=== PATIENT | male | born 1950 | race Caucasian/White ===

== ENCOUNTER 2018-04-02 09:27 | Inpatient (IN) | payer MEDICARE, OTHER ==
[2018-04-02] MEDS: ASPIRIN 325 MG TAB PO (10:28)
[2018-04-02 10:40] LABS: ADD MAN DIFF? NO
[2018-04-02 10:43] LABS: WHITE BLOOD COUNT 12.6 10^3/ul (4.8-10.8)
[2018-04-02 10:43] LABS: BASOPHIL # 0.1 10^3/ul (0.0-0.1); BASOPHILS % 0.6 % (0.0-2.0); EOSINOPHILS # 0.2 10^3/ul (0.0-0.5); EOSINOPHILS % 1.3 % (0.0-7.0); HEMATOCRIT 41.4 % (42.0-52.0); HEMOGLOBIN 13.3 g/dl (14.0-18.0); LYMPHOCYTES # 3.7 10^3/ul (0.8-2.9); LYMPHOCYTES % 29.2 % (15.0-51.0); MEAN CORPUSCULAR HEMOGLOBIN 28.7 pg (29.0-33.0); MEAN CORPUSCULAR HGB CONC 32.1 g/dl (32.0-37.0); MEAN CORPUSCULAR VOLUME 89.4 fl (82.0-101.0); MEAN PLATELET VOLUME 10.2 fl (7.4-10.4); MONOCYTE # 0.7 10^3/ul (0.3-0.9); MONOCYTES % 5.2 % (0.0-11.0); NEUTROPHIL # 7.9 10^3/ul (1.6-7.5); NEUTROPHILS % 63.1 % (39.0-77.0); PLATELET COUNT 283 10^3/UL (140-415); RED BLOOD COUNT 4.63 10^6/ul (4.70-6.10); RED CELL DISTRIBUTION WIDTH 13.2 % (11.5-14.5)
[2018-04-02] MEDS: ENOXAPARIN 80 MG/0.8 ML SYG SC (10:56)
[2018-04-02] MEDS: NITROGLYCERIN 2% 1 GM OINT PKT TD (10:56)
[2018-04-02 11:01] LABS: INR 0.98; PROTIME 13.1 Sec (11.9-14.9)
[2018-04-02 11:02] LABS: PARTIAL THROMBOPLASTIN TIME 36.3 Sec (25.0-35.0)
[2018-04-02 11:03] LABS: ALANINE AMINOTRANSFERASE 34 IU/L (13-69); ALBUMIN/GLOBULIN RATIO 1.17; ALKALINE PHOSPHATASE 79 IU/L (42-121); ANION GAP 12 (8-16); ASPARTATE AMINO TRANSFERASE 21 IU/L (15-46); BILIRUBIN,INDIRECT 0.5 mg/dl (0-1.1); BILIRUBIN,TOTAL 0.5 mg/dl (0.2-1.3); BLOOD UREA NITROGEN 20 mg/dl (7-20); CALCIUM 8.8 mg/dl (8.4-10.2); CARBON DIOXIDE 27 mmol/L (21-31); CHLORIDE 107 mmol/L (97-110); CREATININE 0.93 mg/dl (0.61-1.24); GLUCOSE 104 mg/dl (70-220); POTASSIUM 4.5 mmol/L (3.5-5.1); SODIUM 141 mmol/L (135-144); TOTAL PROTEIN 7.4 g/dl (6.1-8.1)
[2018-04-02 11:14] LABS: TROPONIN-I 0.061 ng/ml (0.000-0.120)
[2018-04-02] MEDS ORDERED: ACETAMINOPHEN 325 MG TAB PO ×2 (12:30→14:30)
[2018-04-02] MEDS ORDERED: ONDANSETRON 4 MG INJ IV ×2 (12:30→14:30)
[2018-04-02] MEDS ORDERED: NACL 0.9% 3 ML SYG IV (14:30)
[2018-04-02] MEDS ORDERED: MAGNESIUM HYDROXIDE 30ML CUP PO (14:30)
[2018-04-02] MEDS ORDERED: DOCUSATE SODIUM 100 MG CAP PO (14:30)
[2018-04-02 14:55] LABS: CREATINE KINASE 48 IU/L (23-200)
[2018-04-02 15:08] LABS: CK INDEX 1.3; CK-MB 0.63 ng/ml (0.0-2.4); TROPONIN-I 0.074 ng/ml (0.000-0.120)
[2018-04-02 20:54] LABS: CREATINE KINASE 48 IU/L (23-200)
[2018-04-02 21:07] LABS: CK INDEX 1.2; CK-MB 0.57 ng/ml (0.0-2.4); TROPONIN-I 0.055 ng/ml (0.000-0.120)
[2018-04-02] MEDS: ATORVASTATIN 80 MG TAB PO (22:04)
[2018-04-03] MEDS: NITROGLYCERIN (SL) 0.4 MG TAB SL (06:57)
[2018-04-03] MEDS: PANTOPRAZOLE (EC) 40 MG TAB PO (06:57)
[2018-04-03] MEDS: NIFEdipine (XL) 30 MG TAB PO (08:30)
[2018-04-03] MEDS: ISOSORBIDE MONONITRATE(SR)30 MG TAB PO (08:30)
[2018-04-03] MEDS: ASPIRIN 81 MG TAB PO (08:30)
[2018-04-03 09:14] LABS: ADD MAN DIFF? NO
[2018-04-03 09:43] LABS: WHITE BLOOD COUNT 13.8 10^3/ul (4.8-10.8)
[2018-04-03 09:43] LABS: BASOPHIL # 0.1 10^3/ul (0.0-0.1); BASOPHILS % 0.8 % (0.0-2.0); EOSINOPHILS # 0.2 10^3/ul (0.0-0.5); EOSINOPHILS % 1.2 % (0.0-7.0); HEMATOCRIT 46.4 % (42.0-52.0); HEMOGLOBIN 14.2 g/dl (14.0-18.0); LYMPHOCYTES # 3.9 10^3/ul (0.8-2.9); LYMPHOCYTES % 28.1 % (15.0-51.0); MEAN CORPUSCULAR HEMOGLOBIN 27.7 pg (29.0-33.0); MEAN CORPUSCULAR HGB CONC 30.6 g/dl (32.0-37.0); MEAN CORPUSCULAR VOLUME 90.6 fl (82.0-101.0); MEAN PLATELET VOLUME 10.6 fl (7.4-10.4); MONOCYTE # 0.9 10^3/ul (0.3-0.9); MONOCYTES % 6.7 % (0.0-11.0); NEUTROPHIL # 8.6 10^3/ul (1.6-7.5); NEUTROPHILS % 62.8 % (39.0-77.0); PLATELET COUNT 302 10^3/UL (140-415); RED BLOOD COUNT 5.12 10^6/ul (4.70-6.10); RED CELL DISTRIBUTION WIDTH 13.3 % (11.5-14.5)
[2018-04-03 10:01] LABS: ALBUMIN 4.1 g/dl (3.3-4.9); ANION GAP 13 (8-16); BLOOD UREA NITROGEN 21 mg/dl (7-20); CALCIUM 8.9 mg/dl (8.4-10.2); CARBON DIOXIDE 28 mmol/L (21-31); CHLORIDE 107 mmol/L (97-110); CREATININE 1.04 mg/dl (0.61-1.24); GLUCOSE 96 mg/dl (70-220); MAGNESIUM 2.2 mg/dl (1.7-2.5); PHOSPHORUS 4.2 mg/dl (2.5-4.9); POTASSIUM 4.4 mmol/L (3.5-5.1); SODIUM 144 mmol/L (135-144)
[2018-04-03] MEDS: ATORVASTATIN 80 MG TAB PO (20:43)
[2018-04-04] MEDS: PANTOPRAZOLE (EC) 40 MG TAB PO (06:03)
[2018-04-04 07:15] LABS: ADD MAN DIFF? NO
[2018-04-04 07:19] LABS: WHITE BLOOD COUNT 13.2 10^3/ul (4.8-10.8)
[2018-04-04 07:19] LABS: BASOPHIL # 0.1 10^3/ul (0.0-0.1); BASOPHILS % 0.6 % (0.0-2.0); EOSINOPHILS # 0.2 10^3/ul (0.0-0.5); EOSINOPHILS % 1.6 % (0.0-7.0); HEMATOCRIT 43.2 % (42.0-52.0); HEMOGLOBIN 13.7 g/dl (14.0-18.0); LYMPHOCYTES # 4.5 10^3/ul (0.8-2.9); LYMPHOCYTES % 33.9 % (15.0-51.0); MEAN CORPUSCULAR HEMOGLOBIN 28.3 pg (29.0-33.0); MEAN CORPUSCULAR HGB CONC 31.7 g/dl (32.0-37.0); MEAN CORPUSCULAR VOLUME 89.3 fl (82.0-101.0); MEAN PLATELET VOLUME 10.2 fl (7.4-10.4); MONOCYTE # 0.7 10^3/ul (0.3-0.9); MONOCYTES % 5.3 % (0.0-11.0); NEUTROPHIL # 7.7 10^3/ul (1.6-7.5); NEUTROPHILS % 58.1 % (39.0-77.0); PLATELET COUNT 280 10^3/UL (140-415); RED BLOOD COUNT 4.84 10^6/ul (4.70-6.10); RED CELL DISTRIBUTION WIDTH 13.2 % (11.5-14.5)
[2018-04-04 07:47] LABS: ALBUMIN 3.9 g/dl (3.3-4.9); ANION GAP 14 (8-16); BLOOD UREA NITROGEN 23 mg/dl (7-20); CALCIUM 8.9 mg/dl (8.4-10.2); CARBON DIOXIDE 27 mmol/L (21-31); CHLORIDE 106 mmol/L (97-110); CREATININE 1.17 mg/dl (0.61-1.24); GLUCOSE 101 mg/dl (70-220); MAGNESIUM 2.1 mg/dl (1.7-2.5); PHOSPHORUS 4.1 mg/dl (2.5-4.9); POTASSIUM 3.9 mmol/L (3.5-5.1); SODIUM 143 mmol/L (135-144)
[2018-04-04] MEDS: ASPIRIN (EC) 325 MG TAB PO (09:04)
[2018-04-04] MEDS: NIFEdipine (XL) 30 MG TAB PO (09:07)
[2018-04-04] MEDS: ISOSORBIDE MONONITRATE(SR)30 MG TAB PO (09:08)
== END 2018-04-04 13:20 | disposition home or self-care (01) | DRG 309 ==
LOC: E/R 09:27 → TEL 12:08
DX: I48.91 Unspecified atrial fibrillation (principal); I20.1 Angina pectoris with documented spasm; I50.30 Unspecified diastolic (congestive) heart failure; I11.0 Hypertensive heart disease with heart failure; E78.5 Hyperlipidemia, unspecified; Z87.891 Personal history of nicotine dependence; E05.90 Thyrotoxicosis, unspecified without thyrotoxic crisis or storm; Z98.61 Coronary angioplasty status
CPT/HCPCS: 36415; 71045; 80053; 80069; 82550; 82553; 83735; 84443; 84484; 85025; 85610; 85730; 87081; 93005; 96372; 99285-25